=== PATIENT | female | born 1930 | race Caucasian/White ===

== ENCOUNTER 2019-02-20 16:19 | Outpatient (CLI) | payer MEDICARE, OTHER ==
[~2019-02-20 16:19] MED LIST: ALLO100T30 PO; ASPI-515 PO; CALC-141 PO; CHOL10002 PO; CYAN-27 PO; METO25TA35 PO
== END 2019-02-20 23:59 | disposition home or self-care (01) ==
LOC: RAD 16:19
PROVIDERS: ATTEND Psychiatry & Neurology Neurology with Special Qualifications in Child Neurology
DX: Z02.9 Encounter for administrative examinations, unspecified (principal)

== ENCOUNTER 2019-02-20 17:01 | Emergency (ER) | payer MEDICARE, OTHER ==
[~2019-02-20] VITALS: Ht 160 cm; Wt 71.5 kg
[2019-02-20 17:18] VITALS: BP 180/83
--- NOTE | 2019-02-20 17:48 | NUR ---
OPEN CLAIMS REPRESENTATIVE: PT TO ROOM AFTER CT SCAN VIA W/C
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
--- NOTE | 2019-02-20 18:31 | NUR ---
Patient/Caregiver given discharge instructions and they have confirmed that they understand the instructions. Patient ambulatory with steady gait.
== END 2019-02-20 18:33 | disposition home or self-care (01) ==
LOC: ED 18:25
DX: S01.01XA Laceration without foreign body of scalp, initial encounter (principal); W10.9XXA Fall (on) (from) unspecified stairs and steps, initial encounter; Y93.89 Activity, other specified; Y92.009 Unspecified place in unspecified non-institutional (private) residence as the place of occurrence of the external cause; Y99.8 Other external cause status
CPT/HCPCS: 70450; 99284